=== PATIENT | female | born 1975 | race Caucasian/White ===

== ENCOUNTER 2016-04-18 08:31 | Emergency (ER) | payer BC, MEDICARE ==
[2016-04-18 08:41] VITALS: BP 120/72
[2016-04-18] MEDS ORDERED: Ketorolac INJ* 30 MG/ML 1 ML VIAL IM ONE (08:49)
[2016-04-18] MEDS ORDERED: Cyclobenzaprine TAB* 10 MG PO ONE (08:50)
--- NOTE | 2016-04-18 08:58 | UC ---
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/slipped forward and injured right wrist as well as wrenching her lower back no bowel/bladder dysfunction has limited ROM now no leg pain or paresthesias - History of Current Complaint Chief Complaint: UCBackPain Stated Complaint: LOWER BACK PAIN S/P FALL Time Seen by Provider: 04/18/16 08:40 Hx Last Menstrual Period: pt had a baby 6 weeks ago Onset/Duration: Sudden Onset Timing: Constant Severity Initially: Severe Severity Currently: Severe Pain Intensity: 8 Pain Scale Used: 0-10 Numeric Back Pain: Is Discrete @ - right lower Character: Aching, Throbbing, Spasmodic Aggravating: Movement, Lifting, Bending Alleviating: Rest Associated Signs And Symptoms: Positive: Negative Related History: Similar Episode Dx As - DDD - Allergies/Home Medications Allergies/Adverse Reactions: Allergies Allergy/AdvReac Type Severity Reaction Status Date / Time No Known Allergies Allergy Verified 04/18/16 08:40 Home Medications: Home Medications Albuterol HFA INHALER* [Ventolin HFA Inhaler*] 2 puff INH Q4H PRN 04/18/16 [ History Confirmed 04/18/16] PMH/Surg Hx/FS Hx/Imm Hx Previously Healthy: Yes Respiratory History Of: Reports: Asthma - Surgical History Surgical History: None - Family History Known Family History: Positive: Cardiac Disease Negative: Hypertension, Diabetes - Social History Alcohol Use: None Substance Use Type: None Smoking Status (MU): Former Smoker Type: Cigarettes When Did the Patient Quit Smoking/Using Tobacco: June 2015 Review of Systems Constitutional: Negative Skin: Negative Eyes: Negative ENT: Negative Respiratory: Negative Cardiovascular: Negative Gastrointestinal: Negative Genitourinary: Negative Motor: Negative Neurovascular: Negative Musculoskeletal: Arthralgia, Decreased ROM, Myalgia Neurological: Negative Psychological: Negative All Other Systems Reviewed And Are Negative: Yes Physical Exam Triage Information Reviewed: Yes Appearance: Well-Appearing, No Pain Distress Vital Signs: Initial Vital Signs Temp 98.2 F 04/18/16 08:37 Pulse 90 04/18/16 08:37 Resp 18 04/18/16 08:37 BP 120/72 04/18/16 08:37 Pulse Ox 99 04/18/16 08:37 Vital Signs Reviewed: Yes Eyes: Positive: Conjunctiva Clear ENT: Positive: Hearing grossly normal. Negative: Nasal congestion, Nasal drainage, TMs normal, Tonsillar swelling, Tonsillar exudate, Trismus, Muffled/ hoarse voice Neck: Positive: Supple, Nontender. Negative: No Lymphadenopathy Respiratory: Positive: Lungs clear, Normal breath sounds, No respiratory distress Cardiovascular: Positive: RRR, No Murmur Musculoskeletal: Positive: No Edema, ROM Limited @, Other: - see image Neurological: Positive: Alert Psychological Exam: Normal Skin Exam: Normal Back Pain Course/Dx - Differential Dx/Diagnosis Provider Diagnoses: left lumbar paraspinous muscle spasm/strain. possible right scaphoid fracture Discharge - Discharge Plan Condition: Stable Disposition: HOME Prescriptions: Cyclobenzaprine TAB* [Flexeril TAB*] 5 mg PO TID PRN #21 tab PRN Reason: Spasms Ibuprofen TAB* [Motrin TAB*] 600 mg PO QID PRN #40 tab PRN Reason: Pain Patient Education Materials: Low Back Strain (ED), SUSPECTED FRACTURE (ED) Referrals: Mayank Espinosa MD [Medical Doctor] - (see Dr. Boggs about your wrist) Non Staff,Doctor [Medical Doctor] - 1 Week (see your provider about your back) Additional Instructions: thumb spica splint you may have a scaphoid fracture of the right wrist/you may have a ganglion cyst Images Hands: 1 - tender distal radius/no snugg box tenderness
--- NOTE | 2016-04-18 09:26 | RAD ---
HISTORY: Pain distal right radius, injury COMPARISONS: None VIEWS: 3, Frontal, lateral, and oblique views of the right wrist FINDINGS: BONE DENSITY: Normal. BONES: There is questionable disruption of the trabecular pattern of the scaphoid along the distal scaphoid JOINTS: There is no arthropathy. ALIGNMENT: There is no dislocation. SOFT TISSUES: Unremarkable. OTHER FINDINGS: None. IMPRESSION: QUESTIONABLE NONDISPLACED FRACTURE OF THE SCAPHOID. RECOMMEND CORRELATION WITH SITE OF PAIN. IF THERE IS PERSISTENT CLINICAL CONCERN FOR SCAPHOID FRACTURE, MRI MAY BE MORE SENSITIVE
== END 2016-04-18 09:42 | disposition home or self-care (01) ==
LOC: UCCORT 08:31
DX: S39.012A Strain of muscle, fascia and tendon of lower back, initial encounter (principal); S69.91XA Unspecified injury of right wrist, hand and finger(s), initial encounter; W19.XXXA Unspecified fall, initial encounter; Y93.89 Activity, other specified; Y92.9 Unspecified place or not applicable; Z87.891 Personal history of nicotine dependence
CPT/HCPCS: 96372; 99213; A9270-GY; G0463; J1885